=== PATIENT | male | born 1995 | race African-American/Black ===

== ENCOUNTER 2019-11-27 12:53 | Emergency (ER) | payer SELFPAY ==
[~2019-11-27] VITALS: Ht 185.4 cm; Wt 79.0 kg
[2019-11-27 12:57] VITALS: BP 103/56
== END 2019-11-27 13:36 | disposition left against medical advice (07) ==
LOC: ER 12:53
DX: Z53.21 Procedure and treatment not carried out due to patient leaving prior to being seen by health care provider (principal)